=== PATIENT | female | born 1955 | race Caucasian/White ===

== ENCOUNTER 2021-10-30 21:43 | Emergency (ER) | payer BC ==
[~2021-10-30] VITALS: Ht 152.4 cm; Wt 115.2 kg
[2021-10-30 21:51] VITALS: BP 131/72
--- NOTE | 2021-10-30 22:30 | NUR ---
Blood for labwork drawn from left arm per sow farm technician. Patient tolerated well.
[2021-10-30 22:34] LABS: BASOPHILS % (AUTO) 0.6 % (0.0-2.0); EOSINOPHILS % (AUTO) 0.4 % (0.0-4.0); HEMATOCRIT 43.8 % (36-48); HEMOGLOBIN 14.5 g/dL (12.0-16.0); LYMPHOCYTES # (AUTO) 2.3 K/uL (2.5-16.5); LYMPHOCYTES % (AUTO) 33.5 % (20.5-51.1); MEAN CORPUSCULAR HEMOGLOBIN 31 pg (27-31); MEAN CORPUSCULAR HGB CONC 33 g/dL (33-37); MEAN CORPUSCULAR VOLUME 92.5 fL (80-94); MONOCYTES # (AUTO) 0.5 K/uL (0.8-1.0); MONOCYTES % (AUTO) 7.9 % (1.7-9.3); NEUTROPHILS # (AUTO) 3.9 K/uL (1.8-7.7); NEUTROPHILS % (AUTO) 57.6 % (42.2-75.2); PLATELET COUNT (AUTO) 227 K/uL (140-450); RED BLOOD CELL COUNT(AUTO) 4.74 MIL/uL (4.20-5.40); RED CELL DISTRIBUTION WIDTH 14.1 % (11.6-13.7); WHITE BLOOD COUNT (AUTO) 6.8 K/uL (4.8-10.8)
--- NOTE | 2021-10-30 22:54 | NUR ---
PT STAND & PIVOT TO BED 10 VIA WHEELCHAIR. UNSTEADY ON FEET.
[2021-10-30 22:56] LABS: ALBUMIN 3.6 g/dL (3.4-5.0); ANION GAP 12.3 (8-16); ASPARTATE AMINOTRANSFERASE 10 U/L (15-37); CARBON DIOXIDE 29.3 mmol/L (21-32); CHLORIDE 101 mmol/L (98-107); GFR ARICAN-AMERICAN 72 mL/min (>90); GLUCOSE 205 mg/dL (74-106); POTASSIUM 4.6 mmol/L (3.5-5.1); SODIUM SERUM 138 mmol/L (136-145); TOTAL BILIRUBIN 0.6 mg/dL (0.0-1.0); UREA NITROGEN, BLOOD 23 mg/dL (7-18)
[2021-10-30 22:57] LABS: ACETAMINOPHEN < 0.5 ug/ml (10-30); SALICYLATE < 2.8 mg/dL (2.8-20.0)
--- NOTE | 2021-10-30 23:31 | NUR ---
ERMD AT BEDSIDE EXAMINING PT
--- NOTE | 2021-10-31 00:06 | NUR ---
FAMILY AT BEDSIDE
--- NOTE | 2021-10-31 00:07 | NUR ---
65 y/o FEMALE who presents to the ED after an intentional overdose of ambien. PT reports taking 8 pills, family is concerned she could have taken more, unk amount of pills in bottle previously. unable to provide a reason for taking the pills. family reports stressors such a recent dispute with other family members. she took these a couple hours prior to arrival and was brought to the ED for somulence/altered mental status. easily awoken but slow to respond and occassionally making confused responses. unlabored breathing, lethargic. unk hx all: sulfa Addendum: 10/31/21 at 0134 by [email or web address] per , pt hx: DM, HTN, HLD, ARTHRITIS, ANX
[2021-10-31] MEDS ORDERED: METF-346 PO (01:30)
[2021-10-31] MEDS ORDERED: ZOLP5TAB1 PO (01:30)
[2021-10-31] MEDS ORDERED: ALPR0.252 PO (01:30)
[2021-10-31] MEDS ORDERED: TOPI50TA PO (01:30)
[2021-10-31] MEDS ORDERED: GLIP5TER PO (01:30)
[2021-10-31] MEDS ORDERED: DONE10TA10 PO (01:30)
[2021-10-31] MEDS ORDERED: PRAV40TA3 PO (01:30)
[2021-10-31] MEDS ORDERED: LISI-486 PO (01:30)
[2021-10-31 02:41] LABS: APPEARANCE,URINE CLEAR (CLEAR); BILIRUBIN,URINE NEGATIVE (NEGATIVE); BLOOD, URINE NEGATIVE (NEGATIVE); COLOR,URINE YELLOW (YELLOW); LEUKOCYTE ESTERASE ,URINE NEGATIVE (NEGATIVE); NITRITE, URINE NEGATIVE (NEGATIVE); UGLUCOSE 3+ (NEGATIVE)
--- NOTE | 2021-10-31 02:53 | NUR ---
PT TOO SLEEPY TO TALK WITH TELE-PSYCH DOCTOR. PT ABLE TO AMBULATE TO RESTROOM WITH MUCH ASSISTANCE. PT RESTING COMFORTABLY WITH FAMILY AT BEDSIDE.
[2021-10-31 02:56] LABS: BARBITURATE, URINE NEGATIVE ng/ml (NEG <=200); BENZODIAZEPINE, URINE NEGATIVE ng/mL (NEG <=200); CANNABINOID, URINE NEGATIVE ng/mL (NEG <=50); COCAINE, URINE NEGATIVE ng/mL (NEG <=300); OPIATE, URINE NEGATIVE ng/mL (NEG <=2000); PHENCYCLIDINE SCREEN,URINE NEGATIVE ng/mL (NEG <=25)
--- NOTE | 2021-10-31 07:15 | NUR ---
PER EVELINE MCDOWELL, POISON CONTROL NOT CALLED PER NOC SHERMAN LOVE. CJ LOVE NOTIFIED
--- NOTE | 2021-10-31 07:25 | NUR ---
TRANSFER OF CARE REPORT GIVEN TO JEREMIAS REYES
--- NOTE | 2021-10-31 08:40 | NUR ---
PT AWAKE AND ASSISTED TO AMBULATE TO RESTROOM. PT STEADY GAIT. AMBULATED BACK TO BED. VSS
--- NOTE | 2021-10-31 11:03 | NUR ---
PT CALM AND RESTING. VSS, SPOUSE AT BEDSIDE
--- NOTE | 2021-10-31 13:24 | NUR ---
PATIENT ASSISTED TO RESTROOM ACCOMPANIED BY SPOUSE
--- NOTE | 2021-10-31 13:31 | NUR ---
SPOKE WITH PANCHITO WITH POISON CONTROL. NO INTERVENTIONS NEEDED AT THIS TIME .ERMD NOTIFIED. PT BACK TO BED, VSS, AAOX4, AMBULATORY
--- NOTE | 2021-10-31 14:23 | NUR ---
1400- PATIENT MOVED TO [facility]-C AT THIS TIME. Addendum: 10/31/21 at 1424 by JERZY 1400- PATIENT MOVED TO [facility]-D AT THIS TIME.
--- NOTE | 2021-10-31 15:00 | NUR ---
PATIENT PROVIDED WITH SANDWICH AND JUICE. TOLERATED PO. CALM AND RESTING IN CHAIR
--- NOTE | 2021-10-31 18:27 | NUR ---
TELE PSYCH [employer] SYSTEM OPERATOR WITH PATIENT WITH DIE FINISHER
--- NOTE | 2021-10-31 19:26 | NUR ---
PER TELEPSYCH DR, PT TO BE PLACED ON 5150 HOLD.
--- NOTE | 2021-10-31 20:20 | NUR ---
PT TAKEN TO BED 6, BELONGINGS COLLECTED.
--- NOTE | 2021-10-31 21:00 | NUR ---
MAYKEL FONTANEZ ASSESSED AND EVALUATED PT
--- NOTE | 2021-11-01 00:02 | NUR ---
Patient appears to be resting comfortably in bed. Vital Signs within normal limits. Respirations even and unlabored.
--- NOTE | 2021-11-01 03:30 | NUR ---
PT AMBULATE TO BATHROOM
--- NOTE | 2021-11-01 04:05 | NUR ---
PT SLEEPING. X2 SIDE RAILS UP FOR SAFETY
--- NOTE | 2021-11-01 04:43 | NUR ---
COVID SWABS COLLECTED AND SENT TO LAB
--- NOTE | 2021-11-01 06:26 | NUR ---
PT RESTING, X2 SIDE RAILS UP
--- NOTE | 2021-11-01 07:21 | NUR ---
Pt report given to ALAN. Transfer of care at this time.
--- NOTE | 2021-11-01 07:22 | NUR ---
REPORT RECEIVED FROM MARGARITA MCOCY. ASSUMED CARE AT THIS TIME
--- NOTE | 2021-11-01 07:39 | NUR ---
PT AT REST AND SLEEPING. NO VISIBLE DISTRESS. PT IN VIEW , BED AT LOWEST POSITION, BED RAIL UP X2
--- NOTE | 2021-11-01 08:27 | NUR ---
PT AWAKE AND SITTING UP IN BED. PT AAOX4, SPEAKING IN FULL SENTENCES.
--- NOTE | 2021-11-01 08:34 | NUR ---
PT PROVIDED WITH BREAKFAST. PT EATING IN BED
[2021-11-01] MEDS ORDERED: metFORMIN 500 MG TAB PO SCH (10:40)
--- NOTE | 2021-11-01 12:15 | NUR ---
PT PROVIDED WITH LUNCH . PT AWAKE AND EATING IN BED
--- NOTE | 2021-11-01 13:38 | NUR ---
Packet fax to [facility]-not appropriate for their unit
--- NOTE | 2021-11-01 13:44 | NUR ---
[facility] [place]
[2021-11-01] MEDS ORDERED: lisinopriL 20 MG TAB PO ONE (15:10)
--- NOTE | 2021-11-01 15:54 | NUR ---
PT PROVIDED WITH ABELARDO AND ROXIE MATIAS
--- NOTE | 2021-11-01 16:38 | NUR ---
PT ACCEPTED TO [facility] [place] , SPOKE WITH [place]
--- NOTE | 2021-11-01 17:28 | NUR ---
PT AMBULATED TO RESTROOM
--- NOTE | 2021-11-01 17:31 | NUR ---
PT AMBULATED BACK TO ROOM
--- NOTE | 2021-11-01 18:30 | NUR ---
PT PROVIDED WITH DINNER, LEFT AT BEDSIDE
--- NOTE | 2021-11-01 18:35 | NUR ---
[facility] [place] [facility] CALLED TO GIVE REPORT. REPORT GIVEN TO KALINA MCDOWELL IN ADULT UNIT 2
--- NOTE | 2021-11-01 19:28 | NUR ---
REPORT GIVEN TO PADMA MCCOY. ALL QUESTIONS ANSWERED. TRANSFER OF CARE AT THIS TIME
--- NOTE | 2021-11-01 19:35 | NUR ---
PATIENT SITTING IN BED. AT BEDSIDE. BED LOW AND LOCKED, SIDE RAIL UP FOR SAFETY. ALL NEEDS MET.
--- NOTE | 2021-11-01 19:40 | NUR ---
Patient to be transferred to [facility]. Is being transferred due to HIGHER LEVEOL OF CARE. Receiving facility has accepting physician and available space. ER physician has signed transfer form. Patient or responsible alliance party has agreed to transfer and signed form. Patient belongings inventoried and will be sent with patient. Copy of nursing notes, lab reports, EKG, Physicians Orders. Report called to JEREMIAS GILMAN at receiving facility BY PREVIOUS NURSE. [facility] ambulance AT BEDSIDE.
--- NOTE | 2021-11-01 19:41 | NUR ---
[facility] ARRIVED TO TRANSPORT PT
[2021-11-01 19:46] VITALS: BP 150/80
--- NOTE | 2021-11-01 19:48 | NUR ---
PT LEAVING WITH EMS
== END 2021-11-01 18:35 | disposition short-term general hospital (02) ==
LOC: MED 21:43
DX: T42.6X2A Poisoning by other antiepileptic and sedative-hypnotic drugs, intentional self-harm, initial encounter (principal); Z20.822 Contact with and (suspected) exposure to COVID-19; R45.851 Suicidal ideations; Z79.899 Other long term (current) drug therapy; Z88.2 Allergy status to sulfonamides; Y92.89 Other specified places as the place of occurrence of the external cause
CPT/HCPCS: 36415; 80053; 80305; 81003; 85025; 87426; 93005; 99285; G0480; G0482

== ENCOUNTER 2024-02-04 11:08 | Emergency (ER) | payer BC, OTHER ==
[~2024-02-04] VITALS: Ht 152.4 cm; Wt 66.2 kg
[~2024-02-04 11:08] MED LIST: ALPR0.252 PO; DONE10TA10 PO; GLIP5TER PO; LISI-951 PO; METF-346 PO; PRAV40TA3 PO; TOPI50TA PO; ZOLP5TAB1 PO
[2024-02-04 11:12] VITALS: BP 147/83; PULSE 83; RESP 16; TEMP 97.2; O2SAT 97
[2024-02-04] MEDS ORDERED: ERYT5OIN51 LEFT EYE (11:45)
[2024-02-04 11:50] VITALS: BP 147/83; PULSE 83; RESP 16; TEMP 97.2; O2SAT 97
== END 2024-02-04 11:50 | disposition home or self-care (01) ==
LOC: MED 11:08
DX: H00.014 Hordeolum externum left upper eyelid (principal); Z79.899 Other long term (current) drug therapy
CPT/HCPCS: 99283